=== PATIENT | male | born 1965 | race Caucasian/White ===

== ENCOUNTER 2021-06-11 13:12 | Emergency (ER) | payer OTHER, SELFPAY ==
[2021-06-11 13:16] VITALS: BP 112/70; PULSE 88; RESP 16; TEMP 37.8; O2SAT 99
--- NOTE | 2021-06-11 13:35 | ED_ITS ---
HPI - Skin/Abscess/Foreign Bdy General Chief complaint: Skin/Abscess/Foreign Body Stated complaint: RASH Source: patient and RN notes reviewed Limitations: no limitations History of Present Illness HPI narrative: The patient, previously mostly healthy, presents with skin eruption. Patient states he has a pink, 'pimply', eruption on one side of his trunk. Symptoms are mild, associated with low-grade fever of 100, were preceded by a prodrome of discomfort earlier in the week. No ear/ocular lesions, cough, S OB Related Data Home Medications Medication Instructions Recorded Confirmed hydrocodone-acetaminophen 06/11/21 Allergies Allergy/AdvReac Type Severity Reaction Status Date / Time No Known Allergies Allergy Unverified 04/11/15 19:26 Review of Systems Review of Systems: General/Constitutional: No weight loss,fever Eyes: N0: Redness,discharge Ears/Nose/Throat: No: Epistaxis,ear discharge Respiratory: Denies: Hemoptysis Gastrointestinal: No Vomiting, Bleeding-rectal Skin: No Lumps, REPORTS eruption Neurologic: No Focal Weakness,Sz Hematologic: Denies: Petechiae/Purpura Psychiatric: No: Suicida ideationl All Other Systems: Reviewed and Negative PMFSH Comments At time of signature, agree with nursing past medical, surgical, social and family history. There is no relevant family history pertinent to the presenting complaint Exam Narrative: General Appearance: Well nourished, Normocephalic Eye: PERRLA, Conjunctiva clear Mouth/Throat: Normal appearing, Supple Respiratory: Airway patent, No respiratory distress Musculoskeletal: Moves all extremities, Non tender Spine/Back: Normal ROM Skin: Warm, Dry; classic papulovesicular on chest T5-T7 dermatome anteriorly and posteriorly Neurological: A&O x3, Normal affect Course Vital Signs Vital signs: Vital Signs Temperature 100.1 F H 06/11/21 13:16 Pulse Rate 88 06/11/21 13:16 Respiratory Rate 16 06/11/21 13:16 Blood Pressure 112/70 06/11/21 13:16 Pulse Oximetry 99 06/11/21 13:16 Temperature 100.1 F H 06/11/21 13:16 Pulse Rate 88 06/11/21 13:16 Respiratory Rate 16 06/11/21 13:16 Blood Pressure 112/70 06/11/21 13:16 Pulse Oximetry 99 06/11/21 13:16 Discharge Plan Discharge Clinical Impression: Shingles Qualifiers: Herpes zoster complications: without complications Qualified Code(s): B02.9 - Zoster without complications Patient Disposition: Home, Self-Care Condition: Stable Instructions: Shingles (ED) Prescriptions: New valacyclovir [Valtrex] 1 gram tablet 1,000 mg PO TID Qty: 20 RF: 0 No Action hydrocodone-acetaminophen 5-325 mg tablet RF: 0 Follow-up/Referrals: [place],Alejandro Dougherty MD [Primary Care Provider] -
== END 2021-06-11 13:42 | disposition home or self-care (01) ==
PROVIDERS: Emergency Provider Emergency Medicine; PCP Family Medicine
DX: B02.9 Zoster without complications (principal)
CPT/HCPCS: 99203; G0463